=== PATIENT | male | born 1980 | race African-American/Black ===

== ENCOUNTER 2017-09-07 00:20 | Inpatient (IN) | payer OTHER ==
[~2017-09-07] VITALS: Ht 180.3 cm; Wt 74.0 kg
[~2017-09-07 00:20] MED LIST: ASPIRIN81 M2 PO; ATORVASTATIN CA40 MG PO; Ascorbic Acid,Ester- PO; B-1100 MG PO; BISACODYL5 MG PO; CEPHALEXIN500 MG PO; CLINDAMYCIN HC300 MG PO; COUMADIN5 MG PO; Colace PO; Coumadin,Jantoven PO; DILAUDID2 MG PO; DOCUSATE SODIU100 MG PO; Dulcolax PO; ENDOCET 5-3251 EACH PO; FOLIC ACID1 MG PO; HYDROCHLOROTHIA25 MG PO; Habitrol,Nicoderm CQ TD; Hydrodiuril,Oretic,E PO; KEFLEX500 MG PO; LISINOPRIL10 MG PO; LYRICA200 MG PO; LYRICA50 MG PO; LYRICA75 MG PO; METOPROLOL TART25 MG PO; MIRTAZAPINE15 MG PO; MORPHINE SULFAT15 M1 PO; MOTRIN600 MG PO; Miralax, Glycolax PO; NICOTINE PATCH1 EAC2 TD; NIFEDIPINE ER60 MG PO; NIFEDIPINE20 MG PO; NIZORAL 2% CREA15 GM TP; NOHOMEMEDS; Neurontin PO; Norvasc PO; OLANZAPINE2.5 MG PO; PERCOCET 5/31 TABLET PO; POLYETHYLENE GL17 GM PO; Percocet 5/325,Endoc PO; Protonix PO; ROXICODONE5 MG PO; SENNA LAX8.6 MG PO; Senokot S,Pericolace PO; THERAGRAN1 TABLET PO; TRAMADOL HCL50 MG PO; TYLENOL PM1 CAPLET; Tylenol Regular Stre PO; VENLAFAXINE HCL75 M3 PO; VITAMIN B-1100 MG PO; WARFARIN SODIUM5 MG PO; XARELTO15 MG PO; XARELTO20 MG PO
[2017-09-07 01:13] LABS: HEMOGLOBIN 18.6 G/DL (12.5-16.6); MCH 33.6 PG (29.0-34.0); MCHC 35.1 G/DL (30.0-36.0); MCV 95.8 FL (86-99); PLATELET COUNT 353 K/uL (156-360); RBC DIS.WIDTH-CV 13.1 % (11.8-14.6); RBC DIS.WIDTH-SD 46.5 % (39-53); RED BLOOD COUNT 5.53 M/uL (4.00-5.50); WHITE BLOOD COUNT 7.3 K/uL (4.1-10.2)
[2017-09-07 01:22] LABS: CHLORIDE 106 mEq/L (99-109); SODIUM 138 mEq/L (136-147)
[2017-09-07 01:22] LABS: PTT 31.8 SEC (25-37)
[2017-09-07 01:23] LABS: GLUCOSE 102 mg/dL (70-99)
[2017-09-07 01:27] LABS: CREATININE 0.9 mg/dL (0.6-1.3); GFR ESTIMATE (CALCULATED) > 59 mL/min/ (58.99-99999)
[2017-09-07 01:28] LABS: UREA NITROGEN (BUN) 5 mg/dL (9-23)
[2017-09-07 02:46] LABS: SERUM ETHYL ALCOHOL 96 mg/dL
[2017-09-07 04:57] LABS: AMPHETAMINE NEGATIVE (500 ng/mL); BARBITURATES NEGATIVE (200 ng/mL); BENZODIAZEPINES NEGATIVE (150 ng/mL); BUPRENORPHINE NEGATIVE (10 ng/mL); COCAINE PRESUMPTIVE POSITIVE (150 ng/mL); METHADONE NEGATIVE (200 ng/mL); METHAMPHETAMINE NEGATIVE (500 ng/mL); OPIATES (MORPHINE) NEGATIVE (100 ng/mL); OXYCODONE PRESUMPTIVE POSITIVE (100 ng/mL); PHENCYCLIDINE NEGATIVE (25 ng/mL); PROPOXYPHENE NEGATIVE (300 ng/mL); THC CANNABINOIDS PRESUMPTIVE POSITIVE (50 ng/mL); TRICYCLIC ANTIDEPRESSANTS NEGATIVE (300 ng/mL)
[2017-09-07] MEDS ORDERED: ZITHROMAX Z-PA250 MG PO (06:48)
[2017-09-07 14:05] VITALS: BP 165/95
[2017-09-07 14:41] VITALS: BP 165/95
[2017-09-07 16:19] VITALS: BP 176/83
[2017-09-08 07:44] VITALS: BP 184/88
[2017-09-08] MEDS ORDERED: AZITHROMYCIN250 MG PO (10:55)
[2017-09-08] MEDS ORDERED: CELEXA20 MG PO (10:55)
[2017-09-08] MEDS ORDERED: WARFARIN SODIUM5 MG PO (11:03)
[2017-09-08 11:09] VITALS: BP 186/86
== END 2017-09-08 12:08 | disposition home or self-care (01) | DRG 881 ==
LOC: EME 00:20 → ENRESERV 13:40 → 1WEST 13:48 → EDOF 13:48 → 1WEST 13:58
PROVIDERS: Emergency Medicine; Psychiatry & Neurology Psychiatry
DX: F32.9 Major depressive disorder, single episode, unspecified (principal); F10.229 Alcohol dependence with intoxication, unspecified; Y90.4 Blood alcohol level of 80-99 mg/100 ml; R45.851 Suicidal ideations; F19.14 Other psychoactive substance abuse with psychoactive substance-induced mood disorder; F14.10 Cocaine abuse, uncomplicated; F12.10 Cannabis abuse, uncomplicated; I82.512 Chronic embolism and thrombosis of left femoral vein; Z91.14 Patient's other noncompliance with medication regimen; M79.652 Pain in left thigh; Z89.612 Acquired absence of left leg above knee; Z89.511 Acquired absence of right leg below knee; J45.909 Unspecified asthma, uncomplicated; F41.9 Anxiety disorder, unspecified; F17.200 Nicotine dependence, unspecified, uncomplicated; Z79.891 Long term (current) use of opiate analgesic; Z86.711 Personal history of pulmonary embolism; Z56.0 Unemployment, unspecified
CPT/HCPCS: 71275; 80048; 84999; 85027; 85610; 85730; 90839; 93971; 99281; 99285; G0480; J1650

== ENCOUNTER 2017-12-16 03:00 | Inpatient (IN) | payer OTHER ==
[~2017-12-16] VITALS: Ht 180.3 cm; Wt 90.5 kg
[~2017-12-16 03:00] MED LIST changes: +AZITHROMYCIN250 MG PO; +CELEXA20 MG PO; +ZITHROMAX Z-PA250 MG PO
[2017-12-16 03:20] LABS: HEMATOCRIT 47.3 % (38.0-50.0); HEMOGLOBIN 16.9 G/DL (12.5-16.6); MCH 33.1 PG (29.0-34.0); MCHC 35.7 G/DL (30.0-36.0); MCV 92.7 FL (86-99); PLATELET COUNT 304 K/uL (156-360); RBC DIS.WIDTH-CV 14.9 % (11.8-14.6); RBC DIS.WIDTH-SD 51.3 % (39-53)
[2017-12-16 03:31] LABS: CHLORIDE 101 mEq/L (99-109); POTASSIUM 4.4 mEq/L (3.7-5.4); SODIUM 136 mEq/L (136-147)
[2017-12-16 03:33] LABS: GLUCOSE 120 mg/dL (70-99)
[2017-12-16 03:36] LABS: CREATININE 0.8 mg/dL (0.6-1.3); GFR ESTIMATE (CALCULATED) > 59 mL/min/ (58.99-99999)
[2017-12-16 03:37] LABS: UREA NITROGEN (BUN) 5 mg/dL (9-23)
[2017-12-16 03:38] LABS: ALBUMIN 5.1 g/dL (3.2-4.8)
[2017-12-16 03:39] LABS: D-DIMER ELISA < 150.00 ng/mLDDU (<230)
[2017-12-16 03:40] LABS: PTT 27.2 SEC (25-37)
[2017-12-16 03:41] LABS: TOTAL PROTEIN 8.7 g/dL (6.4-8.3)
[2017-12-16 03:43] LABS: TOTAL BILIRUBIN 0.6 mg/dL (0.0-1.0)
[2017-12-16 03:44] LABS: ALKALINE PHOSPHATASE 79 IU/L (3-129)
[2017-12-16 03:45] LABS: TROP-I INTERPRETATION NEGATIVE; TROPONIN-I 0.01 ng/mL (0.0-0.30)
[2017-12-16 03:46] LABS: AST (GOT) 34 IU/L (2-34); DIRECT BILIRUBIN 0.2 mg/dL (0.0-0.3)
[2017-12-16 03:47] LABS: ALT (GPT) 48 IU/L (3-49)
[2017-12-16 03:48] LABS: LIPASE 20 U/L (1.0-51.0)
[2017-12-16 04:29] LABS: SERUM ETHYL ALCOHOL 190 mg/dL
[2017-12-16 06:37] LABS: APPEARANCE CLEAR ((CLEAR)); BILIRUBIN NEGATIVE; BLOOD SMALL; COLOR YELLOW ((YELLOW)); GLUCOSE (STRIP) 50; KETONES 20; LEUKOCYTES NEGATIVE; NITRITE NEGATIVE; PROTEIN (STRIP) NEGATIVE; SPECIFIC GRAVITY 1.011 (1.000-1.030); UROBILINOGEN 0.2 MG/DL (0.2-1.0)
[2017-12-16 06:39] LABS: BACTERIA NONE SEEN /HPF; EPITHELIAL CELLS RARE /HPF; MUCUS TRACE /LPF; RED BLOOD CELLS NONE SEEN /HPF (0-5); UCUL ADDED? NO; WHITE BLOOD CELLS 0-5 /HPF (0-5)
[2017-12-16 06:47] LABS: AMPHETAMINE NEGATIVE (500 ng/mL); BARBITURATES NEGATIVE (200 ng/mL); BENZODIAZEPINES NEGATIVE (150 ng/mL); BUPRENORPHINE NEGATIVE (10 ng/mL); COCAINE PRESUMPTIVE POSITIVE (150 ng/mL); METHADONE NEGATIVE (200 ng/mL); METHAMPHETAMINE NEGATIVE (500 ng/mL); OPIATES (MORPHINE) PRESUMPTIVE POSITIVE (100 ng/mL); OXYCODONE NEGATIVE (100 ng/mL); PHENCYCLIDINE NEGATIVE (25 ng/mL); PROPOXYPHENE NEGATIVE (300 ng/mL); THC CANNABINOIDS PRESUMPTIVE POSITIVE (50 ng/mL); TRICYCLIC ANTIDEPRESSANTS NEGATIVE (300 ng/mL)
[2017-12-16 08:18] LABS: CHLORIDE 104 MEQ/L (99-109); CREATININE 0.8 MG/DL (0.6-1.3); GFR ESTIMATE (CALCULATED) > 59 mL/min/ (58.99-99999); GLUCOSE 115 mg/dL (70-99); POTASSIUM 4.1 MEQ/L (3.7-5.4); SODIUM 135 MEQ/L (136-147); UREA NITROGEN (BUN) 5 mg/dL (9-23)
[2017-12-16] MEDS ORDERED: LYRICA200 MG PO (09:02)
[2017-12-16 10:14] VITALS: BP 188/91
[2017-12-16 15:29] VITALS: BP 136/63
[2017-12-16 19:42] VITALS: BP 178/74
[2017-12-16 23:38] VITALS: BP 168/76
[2017-12-17] VITALS (8 sets, daily range): BP systolic 156–196; BP diastolic 67–97
[2017-12-17 06:52] LABS: BASOPHIL (%) 1.2 % (0-1); BASOPHIL COUNT 0.1 K/uL (0-0.1); EOSINOPHIL COUNT 0.1 K/uL (0-0.3); IMMATURE GRANULOCYTE (%) 0.2 % (0.0-0.7); LYMPHOCYTE (%) 53.5 % (15-42); LYMPHOCYTE COUNT 2.7 K/uL (1.0-2.8); MCH 32.1 PG (29.0-34.0); MCHC 33.6 G/DL (30.0-36.0); MCV 95.6 FL (86-99); MONOCYTE (%) 9.9 % (3-12); MONOCYTE COUNT 0.5 K/uL (0-0.8); NEUTROPHIL (%) 33.2 % (45-76); NEUTROPHIL COUNT 1.7 K/uL (1.8-6.4); PLATELET COUNT 239 K/uL (156-360); RBC DIS.WIDTH-CV 15.3 % (11.8-14.6); RBC DIS.WIDTH-SD 54.5 % (39-53); RED BLOOD COUNT 4.08 M/uL (4.00-5.50); WHITE BLOOD COUNT 5.1 K/uL (4.1-10.2)
[2017-12-17 06:56] LABS: HEMOGLOBIN 13.1 G/DL (12.5-16.6)
[2017-12-17 07:10] LABS: CHLORIDE 107 MEQ/L (99-109); CREATININE 0.8 MG/DL (0.6-1.3); GFR ESTIMATE (CALCULATED) > 59 mL/min/ (58.99-99999); GLUCOSE 134 mg/dL (70-99); SODIUM 136 MEQ/L (136-147); UREA NITROGEN (BUN) 4 mg/dL (9-23)
[2017-12-18 05:27] VITALS: BP 183/87
[2017-12-18 06:17] LABS: BASOPHIL (%) 1.2 % (0-1); BASOPHIL COUNT 0.1 K/uL (0-0.1); EOSINOPHIL (%) 3.6 % (0-5); EOSINOPHIL COUNT 0.2 K/uL (0-0.3); HEMATOCRIT 40.9 % (38.0-50.0); IMMATURE GRANULOCYTE (%) 0.3 % (0.0-0.7); LYMPHOCYTE (%) 38.5 % (15-42); LYMPHOCYTE COUNT 2.3 K/uL (1.0-2.8); MCH 32.4 PG (29.0-34.0); MCHC 34.2 G/DL (30.0-36.0); MCV 94.7 FL (86-99); MONOCYTE (%) 9.8 % (3-12); MONOCYTE COUNT 0.6 K/uL (0-0.8); NEUTROPHIL (%) 46.6 % (45-76); NEUTROPHIL COUNT 2.8 K/uL (1.8-6.4); PLATELET COUNT 273 K/uL (156-360); RBC DIS.WIDTH-CV 15.1 % (11.8-14.6); RBC DIS.WIDTH-SD 52.7 % (39-53); RED BLOOD COUNT 4.32 M/uL (4.00-5.50); WHITE BLOOD COUNT 6.1 K/uL (4.1-10.2)
[2017-12-18 06:25] LABS: INTER. NORMALIZED RATIO 1.5
[2017-12-18 06:43] LABS: CHLORIDE 105 MEQ/L (99-109); CREATININE 0.7 MG/DL (0.6-1.3); GFR ESTIMATE (CALCULATED) > 59 mL/min/ (58.99-99999); GLUCOSE 115 mg/dL (70-99); POTASSIUM 3.9 MEQ/L (3.7-5.4); SODIUM 138 MEQ/L (136-147); UREA NITROGEN (BUN) 5 mg/dL (9-23)
[2017-12-18 09:22] VITALS: BP 169/74
[2017-12-18 17:06] VITALS: BP 198/98
[2017-12-18 20:51] VITALS: BP 186/89
[2017-12-19] VITALS (7 sets, daily range): BP systolic 132–187; BP diastolic 61–89
[2017-12-20 01:10] VITALS: BP 150/86
[2017-12-20 05:39] VITALS: BP 175/80
[2017-12-20 07:27] LABS: INTER. NORMALIZED RATIO 1.8
[2017-12-20 07:52] VITALS: BP 122/81
[2017-12-20] MEDS ORDERED: ZYVOX600 MG PO (09:18)
[2017-12-20] MEDS ORDERED: AUGMENTIN875 MG PO (09:18)
[2017-12-20] MEDS ORDERED: LOPRESSOR50 MG PO (09:18)
[2017-12-20] MEDS ORDERED: AMLODIPINE BESYL5 MG PO (09:18)
[2017-12-20 11:30] VITALS: BP 130/60
== END 2017-12-20 13:28 | disposition home or self-care (01) | DRG 871 ==
LOC: EME → EDBD 03:00 → EME 03:00 → EDOF 07:43 → 3EAST 07:43 → ENRESERV 08:11 → 3EAST 10:04
PROVIDERS: Emergency Medicine; Student in an Organized Health Care Education/Training Program
DX: A41.9 Sepsis, unspecified organism (principal); J18.9 Pneumonia, unspecified organism; T87.44 Infection of amputation stump, left lower extremity; L03.116 Cellulitis of left lower limb; B95.7 Other staphylococcus as the cause of diseases classified elsewhere; D68.61 Antiphospholipid syndrome; E87.2 Acidosis; I27.82 Chronic pulmonary embolism; F10.20 Alcohol dependence, uncomplicated; F14.10 Cocaine abuse, uncomplicated; F11.10 Opioid abuse, uncomplicated; J45.909 Unspecified asthma, uncomplicated; I10 Essential (primary) hypertension; F32.9 Major depressive disorder, single episode, unspecified; F17.200 Nicotine dependence, unspecified, uncomplicated; E11.51 Type 2 diabetes mellitus with diabetic peripheral angiopathy without gangrene; Z86.718 Personal history of other venous thrombosis and embolism; Z86.711 Personal history of pulmonary embolism; Z79.01 Long term (current) use of anticoagulants; Z91.14 Patient's other noncompliance with medication regimen; Z89.612 Acquired absence of left leg above knee; Z89.511 Acquired absence of right leg below knee
CPT/HCPCS: 71046; 71275; 80048; 80048 91; 80076; 80202; 81003; 83605; 83690; 83880; 84484; 84999; 85025; 85027; 85379; 85610; 85730; 87040; 87070; 87077; 87186; 87205; 87449; 87641; 87801; 93005; 94640; 94640 76; 94760; 99202; 99281; 99285; G0480; J0295; J0360; J1650; J1956; J3010; J3370; J7030; J7050